=== PATIENT | male | born 1940 | race Caucasian/White ===

== ENCOUNTER 2017-06-13 03:58 | Inpatient (IN) | payer OTHER ==
[~2017-06-13] VITALS: Ht 182.9 cm; Wt 82.0 kg
[2017-06-13 04:40] LABS: CALCIUM 8.6 mg/dL (8.5-10.1); CARBON DIOXIDE 22.3 mmol/L (21-32); CHLORIDE SERUM 98 mmol/L (98-107); CREATININE SERUM 1.3 mg/dL (0.7-1.3); GLUCOSE SERUM 111 mg/dL (74-106); POTASSIUM SERUM 3.9 mmol/L (3.5-5.1); SODIUM SERUM 135 mmol/L (136-145)
[2017-06-13 04:42] LABS: BASOPHIL % 0.4 % (0-2); PLATELET COUNT 188 x10^3mcL (130-400)
[2017-06-13 04:45] LABS: RED CELL DISTRIBUTION WIDTH 17.9 % (11.5-14.5)
[2017-06-13 05:37] VITALS: BP 115/71
[2017-06-13 05:52] VITALS: BP 133/75
[2017-06-13 06:00] LABS: PHOSPHOROUS 2.6 mg/dL (2.5-4.9)
[2017-06-13 06:01] LABS: T3 TOTAL 1.1 ng/mL
[2017-06-13 06:09] LABS: FREE T4 1.04 ng/dL (0.76-1.46); FREE THYROXINE INDEX 2.7 ug/dL (1.4-4.5); T4(THYROXINE) 7.5 ug/dL (4.7-13.3)
[2017-06-13 06:14] LABS: CHOLESTEROL/HDL RATIO 3.7
[2017-06-13 09:10] VITALS: BP 111/63
[2017-06-13 10:55] VITALS: BP 111/63
[2017-06-13 11:43] LABS: microscopic required? NO
[2017-06-13 11:56] LABS: urine erythrocyte NEGATIVE (NEGATIVE)
[2017-06-13 16:39] VITALS: BP 143/85
[2017-06-13 21:20] LABS: ALKALINE PHOSPHATASE 79 U/L (46-116); ALT/SGPT 32 U/L (16-63); AST/SGOT 42 U/L (15-37); BILIRUBIN TOTAL 0.43 mg/dL (0.20-1.00); CALCIUM 8.4 mg/dL (8.5-10.1); CARBON DIOXIDE 25.8 mmol/L (21-32); CHLORIDE SERUM 102 mmol/L (98-107); CREATININE SERUM 1.1 mg/dL (0.7-1.3); GLUCOSE SERUM 81 mg/dL (74-106); POTASSIUM SERUM 4.1 mmol/L (3.5-5.1); SODIUM SERUM 137 mmol/L (136-145); TOTAL PROTEIN, SERUM 6.4 g/dL (6.4-8.2)
[2017-06-13 21:21] LABS: ALBUMIN 2.7 g/dL (3.4-5.0)
[2017-06-13 21:59] VITALS: BP 138/84
[2017-06-14 05:25] VITALS: BP 117/78
[2017-06-14 06:13] LABS: BASOPHIL % 0.3 % (0-2); PLATELET COUNT 138 x10^3mcL (130-400)
[2017-06-14 06:29] LABS: CALCIUM 8.1 mg/dL (8.5-10.1); CARBON DIOXIDE 27.7 mmol/L (21-32); CHLORIDE SERUM 105 mmol/L (98-107); CREATININE SERUM 0.9 mg/dL (0.7-1.3); GLUCOSE SERUM 112 mg/dL (74-106); MAGNESIUM 1.8 mg/dL (1.8-2.4); PHOSPHOROUS 3.4 mg/dL (2.5-4.9); POTASSIUM SERUM 4.5 mmol/L (3.5-5.1); SODIUM SERUM 137 mmol/L (136-145)
[2017-06-14 06:42] LABS: RED CELL DISTRIBUTION WIDTH 17.7 % (11.5-14.5)
[2017-06-14 08:50] VITALS: BP 125/66
[2017-06-14 13:18] VITALS: BP 129/72
[2017-06-14] MEDS ORDERED: COMBIVENT RESPIMAT INH (14:30)
[2017-06-14] MEDS ORDERED: SYMBICORT1 AE3 INH (14:31)
[2017-06-14 17:56] VITALS: BP 142/97
[2017-06-14 22:12] VITALS: BP 141/83
[2017-06-15 06:30] VITALS: BP 140/75
[2017-06-15 07:13] LABS: BASOPHIL % 0.4 % (0-2)
[2017-06-15 07:33] LABS: CALCIUM 8.3 mg/dL (8.5-10.1); CARBON DIOXIDE 27.4 mmol/L (21-32); CHLORIDE SERUM 103 mmol/L (98-107); CREATININE SERUM 0.9 mg/dL (0.7-1.3); GLUCOSE SERUM 96 mg/dL (74-106); MAGNESIUM 1.7 mg/dL (1.8-2.4); PHOSPHOROUS 3.1 mg/dL (2.5-4.9); POTASSIUM SERUM 4.2 mmol/L (3.5-5.1); SODIUM SERUM 135 mmol/L (136-145)
[2017-06-15 07:51] LABS: PLATELET COUNT 128 x10^3mcL (130-400); RED CELL DISTRIBUTION WIDTH 17.3 % (11.5-14.5)
[2017-06-15 10:32] VITALS: BP 144/64
[2017-06-15 18:57] VITALS: BP 142/80
[2017-06-15 20:16] VITALS: BP 134/80
[2017-06-16 05:06] VITALS: BP 126/74
[2017-06-16 07:58] LABS: BASOPHIL % 0.2 % (0-2)
[2017-06-16 08:13] LABS: PLATELET COUNT 119 x10^3mcL (130-400); RED CELL DISTRIBUTION WIDTH 17.3 % (11.5-14.5)
[2017-06-16 08:21] LABS: CARBON DIOXIDE 27.5 mmol/L (21-32); CHLORIDE SERUM 100 mmol/L (98-107); CREATININE SERUM 0.9 mg/dL (0.7-1.3); GLUCOSE SERUM 93 mg/dL (74-106); POTASSIUM SERUM 4.6 mmol/L (3.5-5.1); SODIUM SERUM 132 mmol/L (136-145)
[2017-06-16 10:06] VITALS: BP 144/66
[2017-06-16 13:32] VITALS: BP 118/59
[2017-06-16 16:11] VITALS: BP 119/62
[2017-06-16 21:01] VITALS: BP 122/65
[2017-06-17 05:17] VITALS: BP 137/76
[2017-06-17 09:48] VITALS: BP 132/75
[2017-06-17 13:53] VITALS: BP 134/74
[2017-06-17 17:16] VITALS: BP 133/81
[2017-06-17 21:29] VITALS: BP 139/70
[2017-06-18 05:14] VITALS: BP 129/78
[2017-06-18 06:35] LABS: CALCIUM 8.4 mg/dL (8.5-10.1); CARBON DIOXIDE 27.2 mmol/L (21-32); CHLORIDE SERUM 100 mmol/L (98-107); CREATININE SERUM 0.8 mg/dL (0.7-1.3); GLUCOSE SERUM 92 mg/dL (74-106); MAGNESIUM 1.8 mg/dL (1.8-2.4); POTASSIUM SERUM 3.7 mmol/L (3.5-5.1); SODIUM SERUM 134 mmol/L (136-145)
[2017-06-18 06:57] LABS: BASOPHIL % 0.4 % (0-2); PLATELET COUNT 140 x10^3mcL (130-400); RED CELL DISTRIBUTION WIDTH 16.8 % (11.5-14.5)
[2017-06-18 09:26] VITALS: BP 125/71
[2017-06-18 12:09] VITALS: BP 139/78
[2017-06-18 16:34] VITALS: BP 136/80
[2017-06-18 21:27] VITALS: BP 129/71
[2017-06-19 06:01] VITALS: BP 122/74
[2017-06-19 06:36] LABS: CALCIUM 8.3 mg/dL (8.5-10.1); CARBON DIOXIDE 28.2 mmol/L (21-32); CHLORIDE SERUM 100 mmol/L (98-107); CREATININE SERUM 0.9 mg/dL (0.7-1.3); GLUCOSE SERUM 93 mg/dL (74-106); SODIUM SERUM 133 mmol/L (136-145)
[2017-06-19 06:55] LABS: BASOPHIL % 0.6 % (0-2); PLATELET COUNT 151 x10^3mcL (130-400)
[2017-06-19 07:02] LABS: RED CELL DISTRIBUTION WIDTH 16.9 % (11.5-14.5)
[2017-06-19 09:36] VITALS: BP 131/71
[2017-06-19 13:59] VITALS: BP 145/88
[2017-06-19 16:55] VITALS: BP 123/51
[2017-06-19 21:39] VITALS: BP 138/78
[2017-06-20 05:40] LABS: BASOPHIL % 0.3 % (0-2); PLATELET COUNT 184 x10^3mcL (130-400)
[2017-06-20 05:45] LABS: RED CELL DISTRIBUTION WIDTH 17.1 % (11.5-14.5)
[2017-06-20 05:46] LABS: CALCIUM 8.2 mg/dL (8.5-10.1); CARBON DIOXIDE 25.8 mmol/L (21-32); CHLORIDE SERUM 100 mmol/L (98-107); CREATININE SERUM 0.8 mg/dL (0.7-1.3); GLUCOSE SERUM 100 mg/dL (74-106); MAGNESIUM 1.7 mg/dL (1.8-2.4); SODIUM SERUM 131 mmol/L (136-145)
[2017-06-20 05:59] VITALS: BP 139/70
[2017-06-20 10:04] VITALS: BP 131/77
[2017-06-20 13:05] VITALS: BP 122/62
[2017-06-20 18:16] VITALS: BP 138/73
[2017-06-20 20:50] VITALS: BP 130/72
[2017-06-21 05:55] VITALS: BP 127/60
[2017-06-21 06:53] LABS: CALCIUM 7.8 mg/dL (8.5-10.1); CARBON DIOXIDE 24.1 mmol/L (21-32); CHLORIDE SERUM 99 mmol/L (98-107); CREATININE SERUM 0.8 mg/dL (0.7-1.3); GLUCOSE SERUM 94 mg/dL (74-106); MAGNESIUM 2.4 mg/dL (1.8-2.4); POTASSIUM SERUM 3.8 mmol/L (3.5-5.1); SODIUM SERUM 129 mmol/L (136-145)
[2017-06-21 07:24] LABS: BASOPHIL % 0.5 % (0-2); PLATELET COUNT 215 x10^3mcL (130-400)
[2017-06-21 07:29] LABS: RED CELL DISTRIBUTION WIDTH 17.3 % (11.5-14.5)
[2017-06-21 09:21] VITALS: BP 121/64
[2017-06-21 13:15] VITALS: BP 124/67
[2017-06-21] MEDS ORDERED: LIPI20 PO (14:59)
[2017-06-21] MEDS ORDERED: DIL2 PO (15:00)
[2017-06-21] MEDS ORDERED: ROBDML PO (15:00)
[2017-06-21] MEDS ORDERED: TUMS PO (15:01)
[2017-06-21] MEDS ORDERED: COL100 PO (15:01)
[2017-06-21] MEDS ORDERED: LAC PO (15:02)
[2017-06-21] MEDS ORDERED: MECLIZINE HCL12.5 MG PO (15:02)
[2017-06-21] MEDS ORDERED: PHARMASSURE FO0.4 MG PO (15:02)
[2017-06-21] MEDS ORDERED: THI100 PO (15:02)
[2017-06-21] MEDS ORDERED: SOD1 PO (15:03)
[2017-06-21] MEDS ORDERED: LEVAQUIN750 MG PO (15:04)
[2017-06-21] MEDS ORDERED: CLEOCIN HCL150 MG PO (15:05)
[2017-06-21 15:21] VITALS: BP 124/67
[2017-06-21 17:06] VITALS: BP 129/63
== END 2017-06-21 18:05 | DRG 492 ==
LOC: ED 03:58 → DU 04:58
PROVIDERS: Emergency Medicine; Neuromusculoskeletal Medicine, Sports Medicine; Student in an Organized Health Care Education/Training Program; ADMIT Family Medicine
PROC: 0PUD0JZ Supplement Left Humeral Head with Synthetic Substitute, Open Approach (ICD-10-PCS; 2017-06-15)
PROC: 0PSD04Z Reposition Left Humeral Head with Internal Fixation Device, Open Approach (ICD-10-PCS; principal; 2017-06-15 10:00)
DX: S42.212A Unspecified displaced fracture of surgical neck of left humerus, initial encounter for closed fracture (principal); N17.0 Acute kidney failure with tubular necrosis; J69.0 Pneumonitis due to inhalation of food and vomit; E87.1 Hypo-osmolality and hyponatremia; J44.9 Chronic obstructive pulmonary disease, unspecified; E02 Subclinical iodine-deficiency hypothyroidism; I10 Essential (primary) hypertension; G89.29 Other chronic pain; M54.5 Low back pain; D53.9 Nutritional anemia, unspecified; E78.5 Hyperlipidemia, unspecified; W18.39XA Other fall on same level, initial encounter; Y93.89 Activity, other specified; Y92.013 Bedroom of single-family (private) house as the place of occurrence of the external cause; Z85.110 Personal history of malignant carcinoid tumor of bronchus and lung; Z68.24 Body mass index [BMI] 24.0-24.9, adult; Z87.891 Personal history of nicotine dependence
CPT/HCPCS: 83880; 84439; 94150; 97110-GP; 97116-GP; 97530-GP; C1713; J0330; J0690; J1170; J1885; J1956; J2175; J2250; J2270; J2405; J2704; J3010; J3475; J3490; J7030; J7120; J7620; J7626; Q0092

== ENCOUNTER 2017-08-01 11:00 | Inpatient (IN) | payer OTHER ==
[~2017-08-01] VITALS: Ht 182.9 cm; Wt 73.2 kg
[~2017-08-01 11:00] MED LIST: CLEOCIN HCL150 MG PO; COL100 PO; COMBIVENT RESPIMAT INH; DIL2 PO; LAC PO; LEVAQUIN750 MG PO; LIPI20 PO; MECLIZINE HCL12.5 MG PO; PHARMASSURE FO0.4 MG PO; ROBDML PO; SOD1 PO; SYMBICORT1 AE3 INH; THI100 PO; TUMS PO
[2017-08-01 11:46] LABS: BASOPHIL % 0.4 % (0-2); PLATELET COUNT 191 x10^3mcL (130-400)
[2017-08-01 11:47] LABS: RED CELL DISTRIBUTION WIDTH 15.1 % (11.5-14.5)
[2017-08-01 12:00] LABS: CALCIUM 9.7 mg/dL (8.5-10.1); CARBON DIOXIDE 24.9 mmol/L (21-32); CHLORIDE SERUM 101 mmol/L (98-107); CREATININE SERUM 1.2 mg/dL (0.7-1.3); GLUCOSE SERUM 96 mg/dL (74-106); POTASSIUM SERUM 4.2 mmol/L (3.5-5.1); SODIUM SERUM 136 mmol/L (136-145)
[2017-08-01 12:04] LABS: ALKALINE PHOSPHATASE 87 U/L (46-116); ALT/SGPT 14 U/L (16-63); AST/SGOT 10 U/L (15-37); BILIRUBIN TOTAL 0.5 mg/dL (0.20-1.00); TOTAL PROTEIN, SERUM 7.4 g/dL (6.4-8.2)
[2017-08-01 12:05] LABS: ALBUMIN 3.2 g/dL (3.4-5.0)
[2017-08-01] MEDS ORDERED: LOV40I SQ (13:19)
[2017-08-01] MEDS ORDERED: TEMAZEPAM15 MG PO (13:20)
[2017-08-01] MEDS ORDERED: LIPI20 PO (13:21)
[2017-08-01] MEDS ORDERED: PANTOPRAZOLE SO40 M1 PO (13:21)
[2017-08-01] MEDS ORDERED: MEGL PO (13:21)
[2017-08-01] MEDS ORDERED: NOR10T PO (13:24)
[2017-08-01] MEDS ORDERED: ADVAIR DISKUS 21 DSK IH (13:24)
[2017-08-01] MEDS ORDERED: XOPENEX1.25 MG/3 NEB (13:25)
[2017-08-01] MEDS ORDERED: LOPERAMIDE HCL2 MG PO (13:25)
[2017-08-01 13:32] LABS: FREE T4 1.42 ng/dL (0.76-1.46); FREE THYROXINE INDEX 3.8 ug/dL (1.4-4.5); T4(THYROXINE) 9.9 ug/dL (4.7-13.3)
[2017-08-01 13:38] LABS: MAGNESIUM 1.7 mg/dL (1.8-2.4); PHOSPHOROUS 4.2 mg/dL (2.5-4.9)
[2017-08-01 14:02] VITALS: BP 143/79
[2017-08-01 14:06] VITALS: Ht 182.9 cm; Wt 73.2 kg
[2017-08-01 14:19] LABS: T3 TOTAL 0.86 ng/mL
[2017-08-01 18:15] VITALS: BP 124/78
[2017-08-01 21:35] VITALS: BP 116/71
[2017-08-02 02:51] LABS: UA SPECIFIC GRAVITY >=1.030 (1.005-1.035); microscopic required? YES; urine erythrocyte NEGATIVE (NEGATIVE)
[2017-08-02 04:49] VITALS: BP 110/62
[2017-08-02 11:21] VITALS: BP 127/64
[2017-08-02 14:24] VITALS: BP 123/81
[2017-08-02 17:32] VITALS: BP 117/56
[2017-08-02 21:23] VITALS: BP 131/62
[2017-08-03] VITALS (9 sets, daily range): BP systolic 132–151; BP diastolic 71–81
[2017-08-03 08:04] LABS: CALCIUM 9.2 mg/dL (8.5-10.1); CHLORIDE SERUM 102 mmol/L (98-107); GLUCOSE SERUM 127 mg/dL (74-106); MAGNESIUM 1.8 mg/dL (1.8-2.4); PHOSPHOROUS 3.7 mg/dL (2.5-4.9); SODIUM SERUM 128 mmol/L (136-145)
[2017-08-03 08:08] LABS: PLATELET COUNT 156 x10^3mcL (130-400)
[2017-08-03 08:12] LABS: BASOPHIL % 0 % (0-2); RED CELL DISTRIBUTION WIDTH 15.1 % (11.5-14.5)
[2017-08-04] VITALS (7 sets, daily range): BP systolic 133–151; BP diastolic 65–101
[2017-08-04 08:05] LABS: CALCIUM 9.1 mg/dL (8.5-10.1); CARBON DIOXIDE 22.1 mmol/L (21-32); CHLORIDE SERUM 103 mmol/L (98-107); GLUCOSE SERUM 123 mg/dL (74-106); MAGNESIUM 1.7 mg/dL (1.8-2.4); PHOSPHOROUS 3.1 mg/dL (2.5-4.9); POTASSIUM SERUM 4.6 mmol/L (3.5-5.1); SODIUM SERUM 134 mmol/L (136-145)
[2017-08-04 08:29] LABS: BASOPHIL % 0.7 % (0-2); PLATELET COUNT 162 x10^3mcL (130-400); RED CELL DISTRIBUTION WIDTH 14.9 % (11.5-14.5)
[2017-08-05 05:58] VITALS: BP 125/71
[2017-08-05 07:25] LABS: BASOPHIL % 0.2 % (0-2); PLATELET COUNT 165 x10^3mcL (130-400)
[2017-08-05 08:01] LABS: CALCIUM 8.6 mg/dL (8.5-10.1); CARBON DIOXIDE 21.7 mmol/L (21-32); CHLORIDE SERUM 103 mmol/L (98-107); GLUCOSE SERUM 86 mg/dL (74-106); MAGNESIUM 1.7 mg/dL (1.8-2.4); PHOSPHOROUS 2.9 mg/dL (2.5-4.9); POTASSIUM SERUM 3.6 mmol/L (3.5-5.1); SODIUM SERUM 136 mmol/L (136-145)
[2017-08-05 08:13] LABS: RED CELL DISTRIBUTION WIDTH 15.4 % (11.5-14.5)
[2017-08-05 09:08] VITALS: BP 134/68
[2017-08-05 16:33] VITALS: BP 129/81
[2017-08-05 20:58] VITALS: BP 124/76
[2017-08-06 05:45] VITALS: BP 117/71
[2017-08-06 07:08] LABS: CALCIUM 8.6 mg/dL (8.5-10.1); CARBON DIOXIDE 20.1 mmol/L (21-32); CHLORIDE SERUM 101 mmol/L (98-107); CREATININE SERUM 0.9 mg/dL (0.7-1.3); GLUCOSE SERUM 127 mg/dL (74-106); MAGNESIUM 1.7 mg/dL (1.8-2.4); PHOSPHOROUS 3.8 mg/dL (2.5-4.9); POTASSIUM SERUM 4.1 mmol/L (3.5-5.1); SODIUM SERUM 134 mmol/L (136-145)
[2017-08-06 07:56] LABS: BASOPHIL % 0.1 % (0-2); PLATELET COUNT 171 x10^3mcL (130-400)
[2017-08-06 07:57] LABS: RED CELL DISTRIBUTION WIDTH 15.7 % (11.5-14.5)
[2017-08-06] MEDS ORDERED: LEVOFLOXACIN500 M1 PO (13:47)
[2017-08-06] MEDS ORDERED: CLINDAMYCIN HC300 MG PO (13:49)
[2017-08-06 13:52] VITALS: BP 114/63
[2017-08-06] MEDS ORDERED: IPRATROPIUM BROM3 M2 HHN ×2 (13:54)
[2017-08-06] MEDS ORDERED: PEP20 PO (13:54)
[2017-08-06] MEDS ORDERED: LAC PO (13:55)
[2017-08-06] MEDS ORDERED: MEDDP PO (13:55)
[2017-08-06] MEDS ORDERED: MAGNESIUM OXID400 MG PO (14:35)
[2017-08-06] MEDS ORDERED: MEGACE400 MG/10 PO (14:36)
[2017-08-06] MEDS ORDERED: COL100 PO (15:07)
[2017-08-06] MEDS ORDERED: NOR10T PO (15:07)
[2017-08-06 15:44] VITALS: BP 114/63
[2017-08-06 17:21] VITALS: BP 134/83
[2017-08-06 21:42] VITALS: BP 125/74
[2017-08-07 05:40] VITALS: BP 122/65
[2017-08-07 06:52] LABS: CALCIUM 8.4 mg/dL (8.5-10.1); CARBON DIOXIDE 21.5 mmol/L (21-32); CHLORIDE SERUM 101 mmol/L (98-107); GLUCOSE SERUM 135 mg/dL (74-106); MAGNESIUM 2.1 mg/dL (1.8-2.4); POTASSIUM SERUM 3.9 mmol/L (3.5-5.1); SODIUM SERUM 135 mmol/L (136-145)
[2017-08-07 06:54] LABS: BASOPHIL % 0.1 % (0-2); PLATELET COUNT 187 x10^3mcL (130-400); RED CELL DISTRIBUTION WIDTH 15.4 % (11.5-14.5)
[2017-08-07 09:00] VITALS: BP 124/61
[2017-08-07 09:48] VITALS: BP 124/61
== END 2017-08-07 14:48 | DRG 907 ==
LOC: ED 11:00 → MU 12:35 → DU 12:35 → MU 08-04 09:26
PROVIDERS: Emergency Medicine; Family Medicine; Neuromusculoskeletal Medicine, Sports Medicine
PROC: 0PPD04Z Removal of Internal Fixation Device from Left Humeral Head, Open Approach (ICD-10-PCS; principal; 2017-08-03 07:30)
DX: T85.848A Pain due to other internal prosthetic devices, implants and grafts, initial encounter (principal); J69.0 Pneumonitis due to inhalation of food and vomit; J96.00 Acute respiratory failure, unspecified whether with hypoxia or hypercapnia; N17.0 Acute kidney failure with tubular necrosis; J44.1 Chronic obstructive pulmonary disease with (acute) exacerbation; E44.1 Mild protein-calorie malnutrition; E83.42 Hypomagnesemia; K21.9 Gastro-esophageal reflux disease without esophagitis; J44.9 Chronic obstructive pulmonary disease, unspecified; I35.8 Other nonrheumatic aortic valve disorders; I10 Essential (primary) hypertension; G47.00 Insomnia, unspecified; M47.892 Other spondylosis, cervical region; Z68.22 Body mass index [BMI] 22.0-22.9, adult; Z87.891 Personal history of nicotine dependence; Y79.2 Prosthetic and other implants, materials and accessory orthopedic devices associated with adverse incidents; Y92.129 Unspecified place in nursing home as the place of occurrence of the external cause
CPT/HCPCS: 36600; 83880; 84439; 94150; 97110-GP; J0690; J0696; J1170; J1200; J1885; J1956; J2175; J2250; J2405; J2704; J2920; J2930; J3010; J3475; J3490; J7030; J7120; J7613; J7620; J7626; J7644; Q0092